=== PATIENT | male | born 1980 | race African-American/Black ===

== ENCOUNTER 2017-08-07 22:33 | Emergency (ER) | payer BC, OTHER ==
[2017-08-07 22:48] VITALS: BP 132/65; PULSE 62; TEMP 98; BMI 26.8
[2017-08-07] MEDS ORDERED: KETOROLAC TROMETHAMINE 60 MG/2 ML VIAL IM ONE (23:26)
--- NOTE | 2017-08-07 23:26 | PDOC ---
History of Present Illness - General Chief Complaint: Pain Stated Complaint: BACK PAIN Time Seen by Provider: 08/07/17 22:59 - History of Present Illness Initial Comments: 08/07/17 23:25 37-year-old male complaining of lower back pain after lifting weights at the gym yesterday. Patient tried ibuprofen and Mobic at home with no relief in pain. Patient denies numbness and tingling to the lower extremity, incontinence of bowel or urine. Past History - Past Medical History Allergies/Adverse Reactions: Allergies Allergy/AdvReac Type Severity Reaction Status Date / Time No Known Allergies Allergy Verified 08/07/17 22:41 Home Medications: Ambulatory Orders Diazepam [Valium] 5 mg PO Q8H PRN #6 tablet MDD 3 08/07/17 Ibuprofen 600 mg PO QID PRN #20 tablet 08/07/17 Other medical history: Pt denies - Immunization History Immunization Up to Date: Yes - Psycho/Social/Smoking Cessation Hx Anxiety: No Suicidal Ideation: No Smoking History: Never smoked Have you smoked in the past 12 months: No Information on smoking cessation initiated: No Hx Alcohol Use: No Drug/Substance Use Hx: No Substance Use Type: None Review of Systems - Review of Systems Able to Perform ROS?: Yes Is the patient limited Irish proficient: No Musculoskeletal: Yes: Back Pain, Muscle Pain. No: Symptoms Reported, See HPI, Gout, Joint Pain, Joint Swelling, Muscle Weakness, Neck Pain, Joint Stiffness, Other *Physical Exam - Vital Signs Last Vital Signs Temp Pulse Resp BP Pulse Ox 98.0 F 62 18 132/65 97 08/07/17 22:41 08/07/17 22:41 08/07/17 22:41 08/07/17 22:41 08/07/17 22:41 - Physical Exam General Appearance: Yes: Appropriately Dressed Gastrointestinal/Abdominal: positive: Normal Bowel Sounds, Soft Musculoskeletal: positive: Decreased Range of Motion, Muscle Spasm. negative: Vertebral Tenderness Extremity: positive: Normal Capillary Refill, Normal Inspection, Normal Range of Motion Integumentary: positive: Normal Color, Dry, Warm Neurologic: positive: Fully Oriented, Alert, Normal Mood/Affect Progress Note - Progress Note Progress Note: A: musculoskeletal back pain P: muscle relaxant : outpatient. patient drove to hospital pain control *DC/Admit/Observation/Transfer Diagnosis at time of Disposition: Muscle spasm - Discharge Dispostion Disposition: HOME - Prescriptions Prescriptions: Ibuprofen 600 mg PO QID PRN #20 tablet PRN Reason: Back Pain Diazepam [Valium] 5 mg PO Q8H PRN #6 tablet MDD 3 PRN Reason: Back Pain - Patient Instructions Printed Discharge Instructions: Muscle Strain Additional Instructions: take ibuprofen as prescribed as needed for pain. take valium as prescribed. do not drive or operate heavy machinery after taking medication. follow up with your doctor as soon as possible. return to the ER if symptoms worsen. - Post Discharge Activity Work/School Note: Back to Work
[2017-08-07] MEDS ORDERED: KETOROLAC TROMETHAMINE 60 MG/2 ML VIAL ONE (23:32)
== END 2017-08-08 00:01 | disposition home or self-care (01) ==
LOC: JER 22:33
PROC: 3E0233Z Introduction of Anti-inflammatory into Muscle, Percutaneous Approach (ICD-10-PCS; principal; 2017-08-07)
DX: M62.830 Muscle spasm of back (principal); X50.0XXA Overexertion from strenuous movement or load, initial encounter; Y93.B3 Activity, free weights; Y92.39 Other specified sports and athletic area as the place of occurrence of the external cause; Y99.8 Other external cause status
CPT/HCPCS: 99282-25

== ENCOUNTER 2023-05-02 06:13 | Day surgery (SDC) | payer BC ==
[2023-04-30 14:40] VITALS: BMI 27.6
[2023-05-02 06:48] VITALS: RESP 18; TEMP 97.9
[2023-05-02] MEDS ORDERED: FENTANYL CITRATE/PF 50 MCG/ML VIAL ONE (07:25)
[2023-05-02] MEDS ORDERED: BUPIVACAINE HCL/PF 2.5 MG/ML - 30 ML VIAL IJ ONE (07:25)
[2023-05-02] MEDS ORDERED: MIDAZOLAM HCL 2 MG/2 ML SINGLE DOSE VIAL ONE (07:25)
[2023-05-02] MEDS ORDERED: LIDOCAINE HCL 1%, 10 MG/ML (20ML VIAL) ONE ×2 (07:25→07:43)
[2023-05-02] MEDS ORDERED: PROPOFOL 40 ML ONE (07:31)
[2023-05-02] MEDS ORDERED: DEXAMETHASONE SOD PHOSPHATE 4 MG/1 ML VIAL ONE (07:31)
[2023-05-02] MEDS ORDERED: ONDANSETRON 4 MG/2 ML VIAL ONE (07:31)
[2023-05-02] MEDS ORDERED: ceFAZolin SODIUM 1 GM VIAL ONE (07:31)
[2023-05-02] MEDS ORDERED: KETOROLAC TROMETHAMINE 30 MG/1 ML VIAL ONE (07:31)
[2023-05-02] MEDS ORDERED: ONDANSETRON 4 MG/2 ML VIAL IVPUSH PRN (09:20)
[2023-05-02] MEDS ORDERED: oxyCODONE HCL 5 MG TABLET PO PRN ×2 (09:20)
[2023-05-02 10:33] VITALS: BP 100/60; PULSE 54
== END 2023-05-02 10:00 | disposition home or self-care (01) ==
LOC: FASU 06:13
PROVIDERS: ATTEND Podiatrist Foot & Ankle Surgery
PROC: 0SRQ0JZ Replacement of Left Toe Phalangeal Joint with Synthetic Substitute, Open Approach (ICD-10-PCS; 2023-05-02)
PROC: 0QBP0ZZ Excision of Left Metatarsal, Open Approach (ICD-10-PCS; principal; 2023-05-02 07:57)
DX: M20.12 Hallux valgus (acquired), left foot (principal)
CPT/HCPCS: 88305-TC; 88311-TC; C1713